=== PATIENT | male | born 1990 | race Caucasian/White ===

== ENCOUNTER 2019-11-15 14:18 | Emergency (ER) | payer OTHER ==
[~2019-11-15] VITALS: Ht 172.7 cm; Wt 89.5 kg
[2019-11-15 14:31] VITALS: BP 132/86; Ht 172.7 cm; Wt 89.5 kg
== END 2019-11-15 18:00 | disposition home or self-care (01) ==
LOC: ED 14:18
DX: M62.838 Other muscle spasm (principal)
CPT/HCPCS: J1885